=== PATIENT | female | born 1940 | race Caucasian/White ===

== ENCOUNTER 2019-05-25 16:51 | Emergency (ER) | payer MEDICARE, OTHER ==
--- NOTE | 2019-05-25 17:34 | RAD ---
XR Wrist 3 Rt View STANDARD: 05/25/2019 4:56 PM CLINICAL INDICATION: Right wrist injury COMPARISON: None. FINDINGS: Bones: No acute osseous abnormality. 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 . Soft Tissue: Normal.. IMPRESSION: No acute osseous abnormality..
--- NOTE | 2019-05-25 17:36 | RAD ---
XR Elbow Rt 4 View STANDARD INDICATION: Elbow pain and injury FINDINGS: Bones: There is an obliquely oriented fracture involving the radial head with approximately 2 mm of a rticular surface gap. Joints: There is mild joint capsular distention. 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 Soft tissues: No radiopaque foreign body is evident. IMPRESSION: Mildly displaced radial head fracture
[2019-05-25] MEDS ORDERED: Morphine 4 MG/ML VIAL ONE (18:06)
== END 2019-05-25 18:30 | disposition home or self-care (01) ==
LOC: MADERS 16:51
DX: S52.121A Displaced fracture of head of right radius, initial encounter for closed fracture (principal); S63.501A Unspecified sprain of right wrist, initial encounter; M19.90 Unspecified osteoarthritis, unspecified site; Z79.899 Other long term (current) drug therapy; W01.0XXA Fall on same level from slipping, tripping and stumbling without subsequent striking against object, initial encounter
CPT/HCPCS: 29125; 96374; J2270

== ENCOUNTER 2020-06-08 11:59 | Emergency (ER) | payer MEDICARE, OTHER ==
--- NOTE | 2020-06-08 12:37 | RAD ---
XR Ribs Lt>=2 View W/PA CXR History: Lower rib pain Comparison: None. Findings: Bilateral calcified breast implants. No confluent airspace consolidation, pneumothorax or e ffusion. Minimally displaced left posterolateral ninth rib fracture. Impression: Minimally displaced left posterior lateral ninth rib fracture. No underlying pneumothorax or significant pulmonary contusion.
== END 2020-06-08 13:01 | disposition home or self-care (01) ==
LOC: MADERS 11:59
DX: S22.32XA Fracture of one rib, left side, initial encounter for closed fracture (principal); M19.90 Unspecified osteoarthritis, unspecified site; Z79.891 Long term (current) use of opiate analgesic; Z79.899 Other long term (current) drug therapy; W22.01XA Walked into wall, initial encounter

== ENCOUNTER 2024-07-12 14:11 | Emergency (ER) | payer MEDICARE, OTHER ==
[2024-07-12] MEDS ORDERED: Lidocaine 4% Patch ONE (15:10)
== END 2024-07-12 15:17 | disposition home or self-care (01) ==
LOC: MADERS 14:11
DX: S30.0XXA Contusion of lower back and pelvis, initial encounter (principal); R10.84 Generalized abdominal pain; I25.10 Atherosclerotic heart disease of native coronary artery without angina pectoris; I50.9 Heart failure, unspecified; W22.8XXA Striking against or struck by other objects, initial encounter
CPT/HCPCS: 99283